=== PATIENT | female | born 1985 | race Caucasian/White ===

== ENCOUNTER → 2020-05-10 | Outpatient (CLI) | payer SELFPAY ==
[2020-05-10 10:20] VITALS: BMI 25.3
[2020-05-10 11:36] LABS: Mucous, Urine 0 SEEN /hpf (<or=2+); Red Blood Cells-Urine 0 SEEN /hpf (0-5)
[2020-05-10 12:26] LABS: Color, Urine Yellow (Yellow); Glucose, Dipstick Normal (Normal); Ketone-Dipstick Negative (Negative); Leukocyte Esterase-Dipstick 100 /ul (Negative); Nitrite-Dipstick Negative (Negative); Occult Blood-Urine Negative /ul (Negative); Protein-Dipstick Negative (Negative); Urine Bilirubin Dipstick Negative (Negative); Urine Clarity Cloudy (Clear); Urine Urobilinogen Normal (Normal)
[2020-05-10 12:48] LABS: Amorphous Sediment 2+; Bacteria 3+ /hpf (None Seen); Squamous Epithelial Cells - UA 0-5 SEEN /hpf (5-10); White Blood Cells 0-5 SEEN /hpf (0-5)
== END | disposition home or self-care (01) ==
LOC: LABSPEC 11:34
PROVIDERS: PCP Internal Medicine; Visit Provider Internal Medicine
DX: N39.0 Urinary tract infection, site not specified (principal)
CPT/HCPCS: 81001; 87077; 87086; 87088; 87186

== ENCOUNTER 2020-05-30 20:08 | Inpatient (IN) | payer SELFPAY ==
[2020-05-10 10:20] VITALS: BMI 25.3
[2020-05-30 20:09] VITALS: BP 138/93; PULSE 105; RESP 15; TEMP 37; O2SAT 98; BMI 27.4
--- NOTE | 2020-05-30 20:14 | ED.DCSUM_ITS ---
- ER Visit Summary Date of Service: 05/30/20 Chief Complaint: Detox from heroin History of Present Illness: The patient is a 34 F with no primary care physician. She reports that she has been using heroin daily for the past 10 months. Her last use was yesterday. States that she went through detox at [facility] a few months ago. She has not finished the program. Patient complains of chills and sweats consistent with her withdrawal. She denies any other complaints. Physical Examination: Vitals: Stable. Afebrile. General: Well-nourished and well-developed. Head: Normocephalic atraumatic. Neck: Supple, no lymphadenopathy. No JVD. Nontender. Cardiovascular: Regular rate and rhythm. No murmurs. Respiratory: No respiratory distress. Clear to auscultation bilaterally. Abdominal: Soft, nontender, nondistended, normal bowel sounds. No guarding, rebound, or peritoneal signs. Back: Nontender. Extremities: Nontender, no edema. To her left leg there are multiple injection sites. There is no evidence of infection. No erythema, induration, or fluctuance. Skin: Normal color, no rash. Neurologic: Alert and oriented ?3. Cranial nerves II through XII are intact. Normal strength and sensation. Psych: Normal affect. Test Results: CBC shows segmented neutrophils 77 lymphocytes 13. Chem-7 shows a chloride of 111 and calcium of 8.3. LFTs show an albumin of 3.0, ALT 150, AST 76. test is negative. Talk screen is negative. Alcohol is negative. COVID-19 rapid antigen is negative. Emergency Department Course and Treatment: Patient is resting comfortably. Treatment Plan: Patient was discussed with Dr. Mo she will be admitted to the hospital for further evaluation and treatment. Disposition: Admitted in stable condition. Impression: 1. Opiate withdrawal. This note was generated with [employer] dictation software. It may contain incorrect words, spelling, and punctuation that were not noted in review of the chart prior to signing ED Disposition - Plan for ED Patient: Referrals: Care Physician,No Primary [Primary Care Provider] -
[2020-05-30 20:59] LABS: Amphetamine Urine VISTA NEGATIVE (<1000 ng/mL); Barbiturate Urine VISTA NEGATIVE (< 200 ng/mL); Benzodiazepine Urine VISTA NEGATIVE (< 200 ng/mL); Cocaine Urine VISTA NEGATIVE (< 300 ng/mL); Ecstacy Urine VISTA NEGATIVE (< 500 ng/mL); Methadone Urine VISTA NEGATIVE (< 300 ng/mL); PCP Urine VISTA NEGATIVE (< 25 ng/mL); THC Urine VISTA NEGATIVE (< 50 ng/mL); Vista UDS pH Range 6
[2020-05-30 21:29] LABS: Absolute Lymphocyte Count 1.05 X10^3/uL (0.83-4.51); Absolute Neutrophil Count 6.3 X10^3/uL (2.0-7.7); Basophil# 0.02 X10^3/uL; Basophil% 0.2 % (0-1); Eosinophil# 0.33 X10^3/uL; Hemoglobin 12.3 g/dL (12.0-15.0); Lymphocyte # 1.05 X10^3/ul (4.0); Lymphocyte % 12.7 % (19-41); Mean Corp Hgb Conc 31.5 g/dL (32-36); Mean Corpuscular Hgb 27.4 pg (27.0-32.0); Mean Corpuscular Volume 86.9 fL (81-99); Mean Platelet Vol. 10.2 fl (6.2-12.0); Monocyte% 6.1 % (0-10); NRBC Flagged by Analyzer 0 % (0-5); Neutrophil # 6.33 X10^3/uL (2.7-7.7); Neutrophil % 76.8 % (47-70); Platelet Count 195 K/mm3 (150-450); RBC Distribution Width CV 15.8 % (11.6-14.6); RBC Distribution Width SD 50.4 fl (35.1-43.9); Red Blood Count 4.49 M/mm3 (4.2-5.4); White Blood Count 8.3 K/mm3 (4.4-11.0)
[2020-05-30 21:41] LABS: Internal QC Validated? YES +Cl - CLEAR BKGD; Pregnancy, Serum, hCG Quali. NEGATIVE Negative
[2020-05-30 21:47] LABS: ALB/GLOB Ratio 0.8 RATIO (0.9-2.4); AST(SGOT) 76 U/L (15-37); Alanine Aminotransfer ALT/SGPT 150 U/L (13-56); Alkaline Phosphatase 84 U/L (45-117); Anion Gap 5 (5-15); BUN 7 mg/dL (7-18); BUN/Creat Ratio 8.6 RATIO (10-20); Calcium,Total 8.3 mg/dL (8.5-10.1); Chloride 111 mmol/L (98-107); Creatinine, Serum 0.82 mg/dL (0.55-1.02); EST Glomerular Filtration Rate 86 mL/min (>60); Est Glom Filt Rate - Afr Amer 104 mL/min (>60); Globulin 3.6 g/dL (2.2-4.2); Glucose 80 mg/dL (74-106); Potassium 3.7 mmol/L (3.5-5.1); Protein, Total 6.6 g/dL (6.4-8.2); Sodium Level 142 mmol/L (136-145)
--- NOTE | 2020-05-30 22:10 | HP.PCM_ITS ---
Problem List (1) Acute opioid withdrawal Status: Acute (2) Depression Status: Chronic (3) History of drug abuse Status: Chronic (4) Asthma Status: Chronic (5) Hepatitis C Status: Chronic History of Present Illness Date of Admission: 05/30/20 Chief Complaint: Acute opioid withdrawal. The patient is a 34 year old F with past medical history as mentioned above presented to the emergency room because of acute opioid withdrawal requesting admission for medical stabilization. Patient stated that she has been using IV heroin daily over the last 10 months and her last use was yesterday morning. Her presenting symptoms are cold and hot sweats as well as chills that has been going on since last night, associated with restlessness and abdominal cramps. She described having abdominal pain described as cramps, associated with mild nausea and without aggravating or relieving factors. She informed the ER physician that she went through detox program few months ago but she did not complete that program. When I asked the patient what she lives, she said she is homeless. She denied drinking alcohol or smoking cigarettes. She denied using other drugs. In the emergency department, her vital signs were stable. Her routine blood work was unremarkable. LFT revealed slight elevated liver transaminases, otherwise normal. Serum was negative. Urine drug screen was negative. Blood alcohol level was 3. She is being admitted for acute opioid withdrawal. Past Medical History Past Medical History (Chronic Problems): Chronic Problems (Last Updated 05/30/20 @ 22:[address] Bert Mo MD) Depression (Chronic) History of drug abuse (Chronic) Asthma (Chronic) Hepatitis C (Chronic) Seasonal allergies (Chronic) Medical History: Medical History (Last Updated 05/30/20 @ 22:[address] Bert Mo MD) Depression (Chronic) F32.9 History of drug abuse (Chronic) F19.11 Asthma (Chronic) J45.909 Hepatitis C (Chronic) B19.20 Seasonal allergies (Chronic) J30.2 History of pyloric stenosis Z87.19 1988 Gallstones (Inactive) K80.20 Allergies No Known Allergies Allergy (Verified 05/30/20 20:13) Home Medications: Ambulatory Orders Medication Instructions Recorded NK 05/30/20 Surgical History: Surgical History (Last Updated 05/10/20 @ 10:16 by Gila Levin) History of Z98.891 2013 History of cholecystectomy Z90.49 2017 Psychiatric History: Depression [employer] History: No pertinent [employer] history Lives: Homeless Smoking Status: Never smoker Alcohol: None Drugs: Heroin - *Family History Maternal Family History: Family History (Last Updated 05/10/20 @ 10:13 by Gila Levin) Grandfather Diabetes Heart disease History Items: No pertinent history Paternal Family History: Family History (Last Updated 05/10/20 @ 10:13 by Gila Levin) Grandfather Diabetes Heart disease History Items: No pertinent history Review of Systems Constitutional: Reports: Chills, Malaise. Denies: Anorexia, Fever, Weakness Eyes: Denies: Blurred vision, Cataracts, Double vision, Drainage, Redness HEENT: Denies: Difficulty Hearing, Ear Pain, Eye Pain, Nasal Congestion, Sore Throat Cardiovascular: Denies: Chest Pain, Chest Pressure, Heaviness, Light Headedness, Palpitations, Syncope Respiratory: Denies: Cough, Pleuritic Pain, Sputum production, Wheezing Gastrointestinal: Reports: Abdominal Pain, Nausea. Denies: Constipation, Diarrhea, Vomiting Genitourinary: Denies: Dysuria, Frequency, Hematuria Musculoskeletal: Reports: Muscle pain. Denies: Arm Pain, Back Pain, Foot Pain Skin: Denies: Dryness, Rash Neurological: Reports: Tremor. Denies: Balance problems, Double vision, Change in Speech, Slurred speech, Headaches, Incoordination, Numbness Psychiatric: Reports: Depression. Denies: Anxiety Endocrine: Denies: Change in Body Habitus, Polydipsia, Polyuria VTE Information - Inpt Only VTE Present on Admission: No VTE Mechan Device Prophylaxis: None VTE Pharm Prophylaxis ordered?: No - Physical Exam Vitals/I&O's: Vital Signs Temp Pulse Resp BP Pulse Ox 98.6 F 105 H 15 138/93 H 98 05/30/20 20:09 05/30/20 20:09 05/30/20 20:09 05/30/20 20:09 05/30/20 20:09 Oxygen Delivery Method Room Air Weight: 150 lb Body Mass Index (BMI) 27.4 General: Alert, Oriented x3, Cooperative, No apparent distress HEENT: Atraumatic, PERRLA, EOMI, Normocephalic Oral: Moist Mucosa, No Gingival or Mucosal Lesions/ Ulcerations Neck: Supple, No JVD, Negative Carotid Bruits, Trachea Midline, Thyroid Normal Size and Texture Lungs: Clear to auscultation, Normal air movement, No rhonchi, No wheeze, No rales Cardiovascular: Regular rate, Regular Rhythm, Normal S1, Normal S2, PMI Normal Abdomen: Bowel Sounds Present, Soft, Non Tender, Non-Distended, No Hepato- splenomegaly Extremities: No clubbing, No cyanosis, No edema Skin: No rashes, No breakdown Lymphatic: No Cervical, Supraclavicular, or Inguinal Adenopathy Neurological: Cranial nerves II-XII grossly intact, Motor Exam 5/5 strength throughout Psych/Mental Status: Appropriate, Flat Affect, Alert and oriented to time, place, person, mood and affect Microbiology Past 72 Hours 05/30/20 20:15 Mucosa - Nose SARS-CoV-2 Antigen (Rapid) - Final Laboratory Results 05/30/20 20:25: Urine Opiates Screen NEGATIVE, Urine Methadone Screen NEGATIVE, Ur Barbiturates Screen NEGATIVE, Ur Phencyclidine Scrn NEGATIVE, Ur Amphetamines Screen NEGATIVE, U Methamphetamin-MDMA NEGATIVE, U Benzodiazepines Scrn NEGATIVE, Urine Cocaine Screen NEGATIVE, U Cannabinoids Screen NEGATIVE, Ur Drug Screen Comment 05/30/20 21:22: WBC 8.3, RBC 4.49, Hgb 12.3, Hct 39.0, MCV 86.9, MCH 27.4, MCHC 31.5 L, RDW Std Deviation 50.4 H, RDW Coeff of [place] 15.8 H, Plt Count 195, MPV 10.2, Immature Gran % (Auto) 0.200, Neut % (Auto) 76.8 H, Lymph % (Auto) 12.7 L, [place] % (Auto) 6.1, Eos % (Auto) 4.0, Baso % (Auto) 0.2, Absolute Neuts (auto) 6.3, Absolute Lymphs (auto) 1.05, Nucleated RBC % 0 05/30/20 21:22: Sodium 142, Potassium 3.7, Chloride 111 H, Carbon Dioxide 26.0, Anion Gap 5, BUN 7, Creatinine 0.82, Estim Creat Clear Calc 77.90, Est GFR (MDRD) Af Amer 104, Est GFR (MDRD) Non-Af 86, BUN/Creatinine Ratio 8.6 L, Glucose 80, Calcium 8.3 L, Total Bilirubin 0.40, AST 76 H, ALT 150 H, Alkaline Phosphatase 84, Total Protein 6.6, Albumin 3.0 L, Globulin 3.6, Albumin/Globulin Ratio 0.8 L 05/30/20 21:22: Ethyl Alcohol 3.0 05/30/20 21:22: Serum , Qual NEGATIVE Assessment/Plan All Active Problems (Last Updated 05/30/20 @ 22:[address] Bert Mo MD) Acute opioid withdrawal (Acute) This is a 34 years old female patient presented to the emergency room requesting admission for acute opioid withdrawal for medical stabilization. #1 acute opiate withdrawal: Patient states that she has been using IV heroin daily over the last 10 months. Last use was yesterday morning. Unusually, urine drug screen was negative. Patient is homeless. Her vital signs are stable. Blood alcohol level was 3. Plan: Admit to [facility] floor, initiate acute opioid withdrawal protocol with tapering Subutex, as needed Tylenol, Catapres, Bentyl, gabapentin, Vistaril, Imodium, methocarbamol and Zofran as well as trazodone nightly, consult [facility] program, rn social services consult. #2 elevated LFT: Likely due to history of chronic hepatitis C. On the liver transaminases are slight elevated, both alk phos and bilirubin are normal. Plan to monitor. #3 chronic hepatitis C: Stable, recommend follow-up with infectious disease as outpatient. #4 asthma: Stable, no complaints, on room air. #5 depression: She is not on any treatment at this time. May need to be started on antidepressant upon discharge. #6 DVT prophylaxis: Low risk patient, no prophylaxis indicated. This note was generated with [employer] software. It may contain incorrect words, spelling, and punctuation that were not noted in checking the note before signing. Inpatient E&M: 43432 Init Hosp L2
[2020-05-30 23:09] VITALS: BP 132/81; PULSE 99; RESP 18; TEMP 36.1; O2SAT 99
[2020-05-30 23:28] VITALS: BP 121/67; PULSE 79; RESP 18; TEMP 36.9; O2SAT 100
[2020-05-30 23:29] VITALS: BMI 27.7
[2020-05-30 23:31] VITALS: BMI 27.7
[2020-05-30] MEDS: traZODone 100 MG Tablet PO (23:52)
[2020-05-30] MEDS: Methocarbamol 750 MG Tablet 1500 MG PO (23:52)
[2020-05-30] MEDS: Buprenorphine HCl 2 MG TAB.SUBL 4 MG SL (23:52)
[2020-05-31 03:30] VITALS: BP 102/55; PULSE 72; RESP 16; TEMP 37.1; O2SAT 98
[2020-05-31 06:48] VITALS: BP 112/51; PULSE 75; RESP 16; TEMP 36.7; O2SAT 98
[2020-05-31] MEDS: Buprenorphine HCl 2 MG TAB.SUBL 4 MG SL ×2 (06:50→15:58)
--- NOTE | 2020-05-31 08:51 | CASEMGMT ---
FABRICIO notified Radha at [facility] of pt, she is out sick today, will let pt navigator know. VENTURA Bergeron
[2020-05-31 10:50] VITALS: BP 95/51; PULSE 64; RESP 16; TEMP 36.8; O2SAT 95
--- NOTE | 2020-05-31 15:26 | PN_ITS ---
Patient Problems: Active and Suspected Problems (Last Updated 05/30/20 @ 22:[address] Bert Mo MD) Acute opioid withdrawal (Acute) Subjective: She was seen and examined today, she appears somnolent and is not complaining of any anxiety or tremor. - Physical Exam Vitals/I&O's: Vital Signs Temp Pulse Resp BP Pulse Ox 98.2 F 64 16 95/51 L 95 05/31/20 10:50 05/31/20 10:50 05/31/20 10:50 05/31/20 10:50 05/31/20 10:50 Oxygen Delivery Method Room Air Weight: 68.8 kg Body Mass Index (BMI) 27.7 Intake and Output for Last 24 Hours 05/29/20 05/30/20 05/31/20 23:59 23:59 23:59 Intake Total 1280 / 1280 Balance 1280 / 1280 General: Oriented x3, Cooperative, No apparent distress, Well developed, Well nourished, Lethargic HEENT: Atraumatic, PERRLA, EOMI, Normocephalic Oral: Moist Mucosa Neck: Supple, No JVD, Trachea Midline, Thyroid Normal Size and Texture Lungs: Clear to auscultation, Normal air movement, No rhonchi, No wheeze, No rales Cardiovascular: Regular rate, Regular Rhythm, Normal S1, Normal S2, No murmurs, PMI Normal, No rub noted, No Gallop Abdomen: Bowel Sounds Present, Soft, Non Tender Extremities: No edema, Capillary Refill Less than 3 Seconds Skin: No rashes, No breakdown Musculoskeletal: No Tenderness to Palpation of Joints or Extremities Neurological: Cranial nerves II-XII grossly intact, Neuro grossly intact, Sensory exam intact to light touch and pain Psych/Mental Status: Normal Affect, Appropriate, Alert and oriented to time, place, person, mood and affect Microbiology Past 72 Hours 05/30/20 20:15 Mucosa - Nose SARS-CoV-2 Antigen (Rapid) - Final Laboratory Results 05/30/20 20:25: Urine Opiates Screen NEGATIVE, Urine Methadone Screen NEGATIVE, Ur Barbiturates Screen NEGATIVE, Ur Phencyclidine Scrn NEGATIVE, Ur Amphetamines Screen NEGATIVE, U Methamphetamin-MDMA NEGATIVE, U Benzodiazepines Scrn NEGATIVE, Urine Cocaine Screen NEGATIVE, U Cannabinoids Screen NEGATIVE, Ur Drug Screen Comment 05/30/20 21:22: WBC 8.3, RBC 4.49, Hgb 12.3, Hct 39.0, MCV 86.9, MCH 27.4, MCHC 31.5 L, RDW Std Deviation 50.4 H, RDW Coeff of [place] 15.8 H, Plt Count 195, MPV 10.2, Immature Gran % (Auto) 0.200, Neut % (Auto) 76.8 H, Lymph % (Auto) 12.7 L, [place] % (Auto) 6.1, Eos % (Auto) 4.0, Baso % (Auto) 0.2, Absolute Neuts (auto) 6.3, Absolute Lymphs (auto) 1.05, Nucleated RBC % 0 05/30/20 21:22: Sodium 142, Potassium 3.7, Chloride 111 H, Carbon Dioxide 26.0, Anion Gap 5, BUN 7, Creatinine 0.82, Estim Creat Clear Calc 77.90, Est GFR (MDRD) Af Amer 104, Est GFR (MDRD) Non-Af 86, BUN/Creatinine Ratio 8.6 L, Glucose 80, Calcium 8.3 L, Total Bilirubin 0.40, AST 76 H, ALT 150 H, Alkaline Phosphatase 84, Total Protein 6.6, Albumin 3.0 L, Globulin 3.6, Albumin/Globulin Ratio 0.8 L 05/30/20 21:22: Ethyl Alcohol 3.0 05/30/20 21:22: Serum , Qual NEGATIVE Current Medications Acetaminophen (Acetaminophen 500 Mg Tablet) 500 mg PO Q4H PRN PRN PRN Reason: Temp > 100.4 F Buprenorphine HCl (Buprenorphine Hcl 2 Mg Tab.Subl) 4 mg SL Q8H RANDI; Taper Stop: 06/02/20 23:44 Last Admin: 05/31/20 06:50 Dose: 4 mg Documented by: Clonidine (Clonidine Hcl 0.1 Mg Tablet) 0.1 mg PO Q8H PRN PRN PRN Reason: RESTLESSNESS Dicyclomine HCl (Dicyclomine 10 Mg Capsule) 20 mg PO Q6H PRN PRN PRN Reason: Abdominal Discomfort Loperamide HCl (Loperamide 2 Mg Capsule) 2 mg PO Q4H PRN PRN PRN Reason: LOOSE STOOLS Methocarbamol (Methocarbamol 750 Mg Tablet) 1,500 mg PO Q6H PRN PRN PRN Reason: MUSCLE SPASM Last Admin: 05/30/20 23:52 Dose: 1,500 mg Documented by: Ondansetron HCl (Ondansetron 8 Mg Tablet) 8 mg PO Q8H PRN PRN PRN Reason: NAUSEA Trazodone HCl (Trazodone 100 Mg Tablet) 100 mg PO QHS PRN PRN PRN Reason: INSOMNIA Last Admin: 05/30/20 23:52 Dose: 100 mg Documented by: Medical Necessity - Tobacco Use Smoking Status: Light Smoker (<10/day) Assessment/Plan All Active Problems (Last Updated 05/30/20 @ 22:[address] Bert Mo MD) Acute opioid withdrawal (Acute) #1 acute opiate withdrawal-continue present medications, I have discontinued Vi staril and gabapentin-I do not feel the patient needs these medications. #2 chronic hepatitis C #3 asthma by history-stable at this time #4 chronic depression #5 opiate addiction Inpatient E&M: 81604 [facility] Hosp L2
[2020-05-31 16:00] VITALS: BP 125/68; PULSE 79; RESP 16; TEMP 36.9; O2SAT 100
[2020-05-31] MEDS: Ondansetron 8 MG Tablet PO (16:01)
--- NOTE | 2020-05-31 18:12 | NURSING ---
at 1750, HEALTH PROGRAM DIRECTOR alerted this RN that pt bins had been opened and her belongings were removed. pt not in room or bathroom. MD and studio operations engineer in charge notified that pt must have left the unit unnoticed.
--- NOTE | 2020-06-01 13:40 | DS.PCM_ITS ---
Discharge Date and Diagnosis - Problem List Patient Problems: Active and Suspected Problems (Last Updated 05/30/20 @ 22:[address] Bert Mo MD) Acute opioid withdrawal (Acute) Date of Admission: 05/30/20 Date of Discharge: 05/31/20 - Primary Discharge Diagnosis Acute Problems: Active Problems (Last Updated 05/30/20 @ 22:[address] Bert Mo MD) Acute opioid withdrawal (Acute) #2 chronic hepatitis C #3 asthma by history #4 chronic depression #5 opiate addiction - Secondary Discharge Diagnosis Chronic Problems: Chronic Problems (Last Updated 05/30/20 @ 22:[address] Bert Mo MD) Depression (Chronic) History of drug abuse (Chronic) Asthma (Chronic) Hepatitis C (Chronic) Seasonal allergies (Chronic) Hospital Course and Treatment Operations: None Procedures: None Summary of Care Provided: The patient is a 34 year old F was seen in the emergency room at [facility] desiring services for opiate withdrawal. Patient was admitted to [place] [address] using the standard order set for opiate addiction, she was not severely symptomatic during her hospital stay. On 05/31/2020, patient was seen and examined:General: Oriented x3, Cooperative, No apparent distress, Well developed, Well nourished, Lethargic HEENT: Atraumatic, PERRLA, EOMI, Normocephalic Oral: Moist Mucosa Neck: Supple, No JVD, Trachea Midline, Thyroid Normal Size and Texture Lungs: Clear to auscultation, Normal air movement, No rhonchi, No wheeze, No rales Cardiovascular: Regular rate, Regular Rhythm, Normal S1, Normal S2, No murmurs, PMI Normal, No rub noted, No Gallop Abdomen: Bowel Sounds Present, Soft, Non Tender Extremities: No edema, Capillary Refill Less than 3 Seconds Skin: No rashes, No breakdown Musculoskeletal: No Tenderness to Palpation of Joints or Extremities Neurological: Cranial nerves II-XII grossly intact, Neuro grossly intact, Sensory exam intact to light touch and pain Psych/Mental Status: Normal Affect, Appropriate, Alert and oriented to time, place, person, mood and affect On the evening of 05/31/2020, patient was noted to be absent from her room with her belongings removed from the storage containers which had been stored in her room, it is unknown exactly when she left that evening. Patient was therefore discharged AMA. Patient Problems: Active and Suspected Problems (Last Updated 05/30/20 @ 22:[address] Bert Mo MD) Acute opioid withdrawal (Acute) - Physical Exam Vitals/I&O's: Vital Signs Temp Pulse Resp BP Pulse Ox 98.5 F 79 16 125/68 H 100 05/31/20 16:00 05/31/20 16:00 05/31/20 16:00 05/31/20 16:00 05/31/20 16:00 Oxygen Delivery Method Room Air Weight: 68.8 kg Body Mass Index (BMI) 27.7 Intake and Output for Last 24 Hours 05/30/20 05/31/20 06/01/20 23:59 23:59 23:59 Intake Total 1280 / 1280 Balance 1280 / 1280 Microbiology Past 72 Hours 05/30/20 20:15 Mucosa - Nose SARS-CoV-2 Antigen (Rapid) - Final Home Medications: Medications to take at Discharge NK 05/30/20 Primary Care Physician: Care Physician,No Primary [Primary Care Provider] - Disposition: Against Medical Advice Minutes spent on discharge:: 30 Patient Condition:: Stable Medical Necessity - Tobacco Use Smoking Status: Light Smoker (<10/day) Meaningful Use Info Meaningful Use Diagnoses (Choose all that apply): None applicable Inpatient E&M: 37878 Dis[facility] Hosp
== END 2020-05-31 17:40 | disposition left against medical advice (07) | DRG 770 ==
LOC: ED 20:57 → MS3 22:21
PROVIDERS: Admitting Provider Hospitalist; Emergency Provider Emergency Medicine; Visit Provider Internal Medicine
DX: F11.23 Opioid dependence with withdrawal (principal); Z53.29 Procedure and treatment not carried out because of patient's decision for other reasons; J45.909 Unspecified asthma, uncomplicated; B18.2 Chronic viral hepatitis C; F32.9 Major depressive disorder, single episode, unspecified; F17.200 Nicotine dependence, unspecified, uncomplicated; Z59.0 Homelessness
CPT/HCPCS: 80053; 80307; 80320; 84703; 85025; 87426; 99283; 99406; G0480

== ENCOUNTER 2020-06-05 11:14 | Emergency (ER) | payer MEDICAID, SELFPAY ==
[2020-06-05 11:15] VITALS: BP 125/58; PULSE 90; RESP 16; TEMP 35.9; O2SAT 100; BMI 27.4
--- NOTE | 2020-06-05 11:37 | ED.DCSUM_ITS ---
- ER Visit Summary Date of Service: 06/05/20 Chief Complaint: Requesting detox for heroin abuse. History of Present Illness: The patient is a [address] of heroin abuse. Patient was just in detox center in [facility] about 11 days ago. She was also admitted here for detox on 122 and discharged on 122. Reportedly she has been refused any long-term detox centers. This morning she took 2 Percocet because she did not have any heroin. She denies any other complaints. She is currently homeless. Physical Examination: 4-year-old female no acute distress. Vital signs stable afebrile. Pulse ox 100% on room air no signs of hypoxia. H EENT exam unremarkable. Moist mucous members. Neck nontender no lymphadenopathy. Lungs clear to auscultation bilaterally. Heart regular rhythm rate about 90 no murmur. Chest were nontender. Abdomen soft nontender. Back nontender. Lashay ent is moving all 4 extremities. Neurovascular intact. No edema. No cellulitis. No abscess. She has track anthony in her left lower leg. Neurologically she is awake and alert with no focal motor deficits. Test Results: None. I did review the patient's labs that she had done on 05/30/2020 they were unremarkable. Emergency Department Course and Treatment: Patient requesting detox she is actually had inpatient detox 10 or 11 days ago at an outlying facility and was admitted here on 122 and discharged on 1229. I will speak to the hospitalist but I will think this patient well warrant admission at this time. Treatment Plan: Outpatient follow-up with [facility]. Disposition: Discharge Impression: History of heroin abuse This note was generated with [employer] dictation software. It may contain incorrect words, spelling, and punctuation that were not noted in review of the chart prior to signing ED Disposition - Plan for ED Patient: Referrals: Care Physician,No Primary [Primary Care Provider] -
--- NOTE | 2020-06-05 11:40 | ED.DEP ---
ED Disposition - Plan for ED Patient: Disposition: Home or Assisted Living Instructions: ED Opiate Abuse Referrals: Wendy Hernandez [NON-STAFF] - As Needed [facility] [STAFF PHYSICIAN] - As soon as possible Additional Instructions: Follow-up with [facility] for outpatient detox on Sunday.
--- NOTE | 2020-06-05 12:08 | ED.RN ---
dr dodson spoke with dr mcgarry about admitting pt. pt was just dcd on the May. dr mcgarry said to send the pt home and have her follow up with [facility].
== END 2020-06-05 12:09 | disposition home or self-care (01) ==
LOC: ED 11:50
PROVIDERS: Emergency Provider Emergency Medicine
DX: F11.11 Opioid abuse, in remission (principal); Z59.0 Homelessness
CPT/HCPCS: 99283